=== PATIENT | female | born 1960 | race Caucasian/White ===

== ENCOUNTER 2024-06-30 21:05 | Emergency (ER) | payer MEDICARE ==
[2024-06-30 21:28] VITALS: TEMP 97.9
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
[2024-06-30] MEDS ORDERED: Vibramycin 100 MG ONE (21:56)
[2024-06-30] MEDS: Vibramycin 100 MG PO ONE (21:58)
[2024-06-30 22:05] VITALS: BP 131/47; PULSE 68; RESP 16; O2SAT 98
== END 2024-06-30 22:12 | disposition home or self-care (01) ==
LOC: ED 21:05
DX: L03.116 Cellulitis of left lower limb (principal); I10 Essential (primary) hypertension; Z79.899 Other long term (current) drug therapy
CPT/HCPCS: 99282; A9270-GY